=== PATIENT | male | born 1975 | race Caucasian/White ===

== ENCOUNTER 2017-12-02 15:56 | Emergency (ER) | payer OTHER ==
[~2017-12-02] VITALS: Ht 177.8 cm; Wt 68.2 kg
[2017-12-02 16:12] LABS: GLUCOSE,POINT OF CARE 94 MG/DL (70-110)
[2017-12-02] MEDS ORDERED: NALOXONE HCL 1 MG/ML 2 ML SYG IVP ONE ×2 (16:30)
[2017-12-02] MEDS ORDERED: SODIUM CHLORIDE 0.9% 1,000 ML IV ONE (16:30)
[2017-12-02 16:39] LABS: BASOPHILS % (AUTO) 0.4 % (0.0-2.0); EOSINOPHILS % (AUTO) 0.8 % (1.0-6.0); HEMATOCRIT 37.1 % (41-53); HEMOGLOBIN 12.7 g/dL (13.5-17.5); LYMPHOCYTES # (AUTO) 0.9 K/uL (1.0-4.8); LYMPHOCYTES % (AUTO) 8.3 % (22.0-44.0); MEAN CORPUSCULAR HEMOGLOBIN 32.1 pg (26.0-34.0); MEAN CORPUSCULAR HGB CONC 34.4 G/dL (31.0-37.0); MEAN CORPUSCULAR VOLUME 93 fL (80-100); MONOCYTES # (AUTO) 0.8 K/uL (0.1-1.0); NEUTROPHILS # (AUTO) 9.2 K/uL (1.8-7.7); NEUTROPHILS % (AUTO) 83.5 % (40.0-70.0); PLATELET COUNT (AUTO) 103 K/uL (150-450); RED BLOOD CELL COUNT(AUTO) 3.97 MIL/uL (4.50-5.90); RED CELL DISTRIBUTION WIDTH 13.3 % (11.5-14.5)
[2017-12-02 16:47] LABS: ANION GAP 9 mmol/L (8-16); CALCIUM, TOTAL 8.3 mg/dL (8.8-10.5); CARBON DIOXIDE 27 mmol/L (22-29); CHLORIDE 102 mmol/L (98-107); CREATININE 0.49 mg/dL (0.60-1.30); GLOMERULAR FILTR. RATE CALC > 60 mL/min (>60); GLUCOSE,RANDOM 102 mg/dL (70-110); SODIUM SERUM 138 mmol/L (136-145); UREA NITROGEN, BLOOD 13 mg/dL (7-18)
[2017-12-02 16:48] LABS: AMPHET/METH SCREEN,URINE NEGATIVE (NEGATIVE); BARBITURATE SCREEN, URINE NEGATIVE (NEGATIVE); BENZODIAZEPINES SCREEN,URINE POSITIVE (NEGATIVE); CANNABINOID SCREEN,URINE NEGATIVE (NEGATIVE); COCAINE SCREEN,URINE NEGATIVE (NEGATIVE); METHADONE SCREEN, URINE NEGATIVE (NEGATIVE); OPIATE SCREEN,URINE NEGATIVE (NEGATIVE); PHENCYCLIDINE SCREEN,URINE NEGATIVE (NEGATIVE)
[2017-12-02 16:54] LABS: APPEARANCE,URINE CLEAR (CLEAR); BILIRUBIN,URINE NEGATIVE (NEGATIVE); GLUCOSE, URINE (UA) NEGATIVE (NEGATIVE); KETONES,URINE NEGATIVE (NEGATIVE); LEUKOCYTE ESTERASE ,URINE NEGATIVE (NEGATIVE); NITRATE,URINE NEGATIVE (NEGATIVE); OCCULT BLOOD,URINE TRACE (NEGATIVE); PH,URINE 6.5 (5.0-8.0); PROTEIN,URINE NEGATIVE (NEGATIVE); UROBILINOGEN,URINE 0.2 mg/dL (<=1.0)
[2017-12-02 16:54] LABS: ALANINE AMINOTRANSFERASE 94 U/L (12-78); ALKALINE PHOSPHATASE 103 U/L (46-116); ASPARTATE AMINOTRANSFERASE 122 U/L (15-37); BILIRUBIN,TOTAL 0.3 mg/dL (0.1-1.0)
[2017-12-02 17:07] LABS: SALICYLATE < 2.8 mg/dL (2.8-20.0)
[2017-12-02 17:15] LABS: BACTERIA,URINE None Seen /HPF (None Seen); RBC,URINE 0-2 /HPF (0-2); SQUAMOUS EPITHELIAL CELL,UR None Seen /LPF (None Seen); WBC,URINE 0-2 /HPF (0-5)
[2017-12-02] MEDS ORDERED: FLUMAZENIL 0.1 MG/ML 5 ML VIAL IVP ONE (17:15)
[2017-12-02 17:24] LABS: ACETAMINOPHEN < 2 mcg/mL (10-30)
[2017-12-02] MEDS ORDERED: SUCCINYLCHOLINE CHLORIDE 20 MG/ML 10 ML VIAL ONE (17:31)
[2017-12-02] MEDS ORDERED: RAPID SEQUENCE KIT [RSI] 1 EACH KIT ONE (17:31)
[2017-12-02] MEDS ORDERED: DEXTROSE 50%-WATER 25 GM/50 ML SYRINGE IVP ONE ×2 (17:33)
[2017-12-02 18:52] LABS: ABG CARBOXYHEMOGLOBIN 1.3 % (0.0-1.5); ABG METHEMOGLOBIN 0.3 % (0.0-1.5); ABG OXYGEN CONTENT 17.4 mL/dL (15.0-23.0); ABG OXYGEN SATURATION 98.9 % (95.0-98.0); ABG OXYHEMOGLOBIN 97.3 % (94.0-100.0); ABG PCO2 40 mmHg (35-45); ABG PH 7.382 (7.35-7.450); ABG TOTAL HEMOGLOBIN 12.5 G/dL (12.0-18.0); PO2, ARTERIAL BG 165.8 mmHg (66.0-74.0); SOURCE, BLOOD GAS ARTERIAL; TEMPERATURE, FAHRENHEIT, BG 98.6 FAHREN (96.0-98.6)
[2017-12-02 18:53] LABS: SITE, BLOOD GAS LFT RADIAL
[2017-12-02 18:54] LABS: O2 DEVICE,BLOOD GAS CANNULA (ROOM AIR)
[2017-12-02] MEDS ORDERED: MAGNESIUM SULFATE 2 GM, MVI, ADULT NO.1 WITH VIT K 10 ML, THIAMINE HCL 100 MG, FOLIC AC... IV ONE ×5 (21:00)
[2017-12-03 06:10] VITALS: BP 120/74
== END 2017-12-03 06:36 | disposition home or self-care (01) ==
LOC: EMS 15:57 → EDBD 15:57 → EMS 12-03 06:36
DX: R40.4 Transient alteration of awareness (principal); F10.129 Alcohol abuse with intoxication, unspecified; F19.10 Other psychoactive substance abuse, uncomplicated
CPT/HCPCS: 36415; 70450; 80053; 80307; 81001; 82805; 82962; 84484; 85025; 93005; 96365; 96375; 99285; G0480 ×2; G0481; J0330; J3411; J3475; J3490 ×3; J7030; Z7610

== ENCOUNTER 2018-05-08 22:54 | Inpatient (IN) | payer MEDICAID, OTHER ==
[~2018-05-08] VITALS: Ht 172.7 cm; Wt 72.1 kg
[2018-05-08] MEDS ORDERED: SODIUM CHLORIDE 0.9% 1,000 ML IV ONE (23:30)
[2018-05-08 23:55] LABS: BASOPHILS % (AUTO) 1.7 % (0.0-2.0); EOSINOPHILS % (AUTO) 1.2 % (1.0-6.0); HEMATOCRIT 37.9 % (41-53); HEMOGLOBIN 13.1 g/dL (13.5-17.5); LYMPHOCYTES # (AUTO) 1.5 K/uL (1.0-4.8); LYMPHOCYTES % (AUTO) 23.9 % (22.0-44.0); MEAN CORPUSCULAR HEMOGLOBIN 32.7 pg (26.0-34.0); MEAN CORPUSCULAR HGB CONC 34.6 G/dL (31.0-37.0); MEAN CORPUSCULAR VOLUME 94 fL (80-100); MONOCYTES # (AUTO) 0.3 K/uL (0.1-1.0); NEUTROPHILS # (AUTO) 4.5 K/uL (1.8-7.7); NEUTROPHILS % (AUTO) 69.2 % (40.0-70.0); PLATELET COUNT (AUTO) 230 K/uL (150-450); RED BLOOD CELL COUNT(AUTO) 4.02 MIL/uL (4.50-5.90); RED CELL DISTRIBUTION WIDTH 14.7 % (11.5-14.5)
[2018-05-09 00:50] LABS: ANION GAP 6 mmol/L (8-16); CALCIUM, TOTAL 8.6 mg/dL (8.8-10.5); CARBON DIOXIDE 30 mmol/L (22-29); CHLORIDE 107 mmol/L (98-107); CREATININE 0.49 mg/dL (0.60-1.30); GLOMERULAR FILTR. RATE CALC > 60 mL/min (>60); GLUCOSE,RANDOM 82 mg/dL (70-110); POTASSIUM 3.8 mmol/L (3.5-5.1); SODIUM SERUM 143 mmol/L (136-145); UREA NITROGEN, BLOOD 6 mg/dL (7-18)
[2018-05-09 00:56] LABS: ALANINE AMINOTRANSFERASE 56 U/L (12-78); ALBUMIN 3.5 g/dL (3.4-5.0); ALKALINE PHOSPHATASE 59 U/L (46-116); ASPARTATE AMINOTRANSFERASE 50 U/L (15-37); BILIRUBIN,TOTAL 0.2 mg/dL (0.1-1.0)
[2018-05-09 03:40] LABS: AMPHET/METH SCREEN,URINE NEGATIVE (NEGATIVE); BARBITURATE SCREEN, URINE NEGATIVE (NEGATIVE); BENZODIAZEPINES SCREEN,URINE POSITIVE (NEGATIVE); CANNABINOID SCREEN,URINE NEGATIVE (NEGATIVE); COCAINE SCREEN,URINE NEGATIVE (NEGATIVE); METHADONE SCREEN, URINE NEGATIVE (NEGATIVE); OPIATE SCREEN,URINE NEGATIVE (NEGATIVE)
[2018-05-09 03:43] LABS: PHENCYCLIDINE SCREEN,URINE NEGATIVE (NEGATIVE)
[2018-05-09] MEDS ORDERED: LORazepam 2 MG/ML VIAL IVP ONE (05:00)
[2018-05-09] MEDS ORDERED: LOPERAMIDE HCL 2 MG CAPSULE PO PRN ×3 (05:45→18:00)
[2018-05-09] MEDS ORDERED: MAG HYDROX/AL HYDROX/SIMETH ES 30 ML SUSPENSION UDCUP PO PRN ×2 (05:45→18:00)
[2018-05-09] MEDS ORDERED: GuaiFENesin/D-METHORPHAN [SUGAR-FREE] 200-20MG/10 ML SYRUP UDCUP PO PRN (05:45)
[2018-05-09] MEDS ORDERED: CYANOCOBALAMIN 1,000 MCG/ML VIAL IM ONE (05:45)
[2018-05-09] MEDS ORDERED: MAGNESIUM HYDROXIDE SUSPENSION 30 ML UDCUP PO PRN ×2 (05:45→18:00)
[2018-05-09] MEDS ORDERED: PROMETHAZINE HCL 25 MG TABLET PO PRN (05:45)
[2018-05-09] MEDS: LORazepam 2 MG TABLET PO PRN ×3 (09:15→17:37)
[2018-05-09] MEDS: FOLIC ACID 1 MG TABLET PO SCH (09:15)
[2018-05-09] MEDS: MULTIVITAMINS WITH MINERALS, THERAPEUTIC TABLET PO SCH (09:15)
[2018-05-09] MEDS: THIAMINE HCL 100 MG TABLET PO SCH ×2 (09:16→17:13)
[2018-05-09] MEDS: HydrOXYzine PAMOATE 50 MG CAPSULE PO PRN (09:39)
[2018-05-09] MEDS: HALOPERIDOL 5 MG TABLET PO PRN ×2 (09:39→17:37)
[2018-05-09] MEDS: ACETAMINOPHEN 325 MG TABLET PO PRN ×2 (12:40→17:37)
[2018-05-09 16:35] VITALS: BP 146/98
[2018-05-09 17:14] VITALS: BP 146/98
[2018-05-09 17:40] VITALS: BP 134/90
[2018-05-09] MEDS ORDERED: ONDANSETRON HCL 4 MG TABLET PO PRN (18:00)
[2018-05-09] MEDS ORDERED: CloNIDine HCL 0.1 MG TABLET PO PRN (18:00)
[2018-05-09] MEDS ORDERED: DOCUSATE SODIUM 100 MG CAPSULE PO PRN (18:00)
[2018-05-09] MEDS ORDERED: ALBUTEROL SULFATE HFA 90 MCG/PUFF 8 GM INHALER IH PRN (18:00)
[2018-05-09] MEDS ORDERED: PETROLATUM,WHITE 71 GM JELLY TP PRN (18:00)
[2018-05-09] MEDS ORDERED: ACETAMINOPHEN 325 MG TABLET PO PRN (18:00)
[2018-05-09 18:30] VITALS: BP 122/88
[2018-05-09 19:30] VITALS: BP 109/67
[2018-05-09 23:37] VITALS: BP 124/92
[2018-05-10] VITALS (7 sets, daily range): BP systolic 105–131; BP diastolic 64–84
[2018-05-10] MEDS: HALOPERIDOL 5 MG TABLET PO PRN ×3 (06:34→14:52)
[2018-05-10 08:21] LABS: HEMOGLOBIN A1C 4.8 % (4.5-6.2)
[2018-05-10] MEDS: NICOTINE 14 MG/24 HOUR PATCH TD SCH (09:00)
[2018-05-10 09:13] LABS: CHOL/HDL RATIO 2.7 (4.2-7.3); THYROID STIMULATING HORMONE 1.92 uIU/mL (0.36-3.74)
[2018-05-10] MEDS: THIAMINE HCL 100 MG TABLET PO SCH ×2 (10:17→16:09)
[2018-05-10] MEDS: FOLIC ACID 1 MG TABLET PO SCH (10:17)
[2018-05-10] MEDS: MULTIVITAMINS WITH MINERALS, THERAPEUTIC TABLET PO SCH (10:17)
[2018-05-10] MEDS: LORazepam 2 MG TABLET PO SCH ×4 (10:17→20:27)
[2018-05-10] MEDS: LORazepam 2 MG TABLET PO PRN ×2 (14:51→17:45)
[2018-05-10] MEDS: GABAPENTIN 300 MG CAPSULE PO SCH (17:07)
[2018-05-10] MEDS: ZOLPIDEM TARTRATE 10 MG TABLET PO PRN (20:27)
[2018-05-10] MEDS ORDERED: MIRTAZAPINE 15 MG TABLET PO SCH (21:00)
[2018-05-11 06:09] VITALS: BP 120/62
[2018-05-11] MEDS: LORazepam 2 MG TABLET PO PRN (07:00)
[2018-05-11 08:00] VITALS: BP 107/63
[2018-05-11 08:16] VITALS: BP 107/63
[2018-05-11] MEDS: LORazepam 2 MG TABLET PO SCH ×4 (08:58→20:39)
[2018-05-11] MEDS: IBUPROFEN 400 MG TABLET PO PRN (08:58)
[2018-05-11] MEDS: THIAMINE HCL 100 MG TABLET PO SCH ×2 (08:58→16:23)
[2018-05-11] MEDS: MULTIVITAMINS WITH MINERALS, THERAPEUTIC TABLET PO SCH (08:58)
[2018-05-11] MEDS: FOLIC ACID 1 MG TABLET PO SCH (08:58)
[2018-05-11] MEDS: GABAPENTIN 300 MG CAPSULE PO SCH ×2 (08:58→16:22)
[2018-05-11] MEDS: NICOTINE 14 MG/24 HOUR PATCH TD SCH (08:59)
[2018-05-11 16:00] VITALS: BP 121/65
[2018-05-11] MEDS: HALOPERIDOL 5 MG TABLET PO PRN (16:23)
[2018-05-11] MEDS: ZOLPIDEM TARTRATE 10 MG TABLET PO PRN (20:39)
[2018-05-11] MEDS ORDERED: MIRTAZAPINE 30 MG TABLET PO SCH (21:00)
[2018-05-12 01:05] VITALS: BP 120/68
[2018-05-12 01:08] VITALS: BP 120/68
[2018-05-12 04:45] VITALS: BP 110/74
[2018-05-12] MEDS: LORazepam 2 MG TABLET PO PRN (04:46)
[2018-05-12 08:06] VITALS: BP_SYST 104; BP_DIAS 65; BP_DIAS 71
[2018-05-12] MEDS: NICOTINE 14 MG/24 HOUR PATCH TD SCH (09:00)
[2018-05-12] MEDS: MULTIVITAMINS WITH MINERALS, THERAPEUTIC TABLET PO SCH (09:07)
[2018-05-12] MEDS: FOLIC ACID 1 MG TABLET PO SCH (09:07)
[2018-05-12] MEDS: LORazepam 1 MG TABLET PO SCH ×4 (09:07→20:09)
[2018-05-12] MEDS: GABAPENTIN 300 MG CAPSULE PO SCH ×3 (09:07→16:05)
[2018-05-12] MEDS: THIAMINE HCL 100 MG TABLET PO SCH ×2 (09:10→16:04)
[2018-05-12] MEDS: LORazepam 1 MG TABLET PO PRN (10:22)
[2018-05-12 16:00] VITALS: BP 127/72
[2018-05-12] MEDS: HALOPERIDOL 5 MG TABLET PO PRN (16:04)
[2018-05-12] MEDS: MIRTAZAPINE 30 MG TABLET PO SCH (20:08)
[2018-05-12] MEDS: ZOLPIDEM TARTRATE 10 MG TABLET PO PRN (20:09)
[2018-05-13 00:46] VITALS: BP 124/83
[2018-05-13 00:53] VITALS: BP 124/83
[2018-05-13] MEDS: HALOPERIDOL 5 MG TABLET PO PRN ×3 (06:52→20:18)
[2018-05-13] MEDS: LORazepam 1 MG TABLET PO PRN ×4 (06:53→20:18)
[2018-05-13 08:00] VITALS: BP 110/65
[2018-05-13] MEDS: MULTIVITAMINS WITH MINERALS, THERAPEUTIC TABLET PO SCH (08:24)
[2018-05-13] MEDS: THIAMINE HCL 100 MG TABLET PO SCH ×2 (08:25→16:23)
[2018-05-13] MEDS: FOLIC ACID 1 MG TABLET PO SCH (08:25)
[2018-05-13] MEDS ORDERED: GABAPENTIN 400 MG CAPSULE PO SCH (09:00)
[2018-05-13] MEDS ORDERED: GABAPENTIN 300 MG CAPSULE PO SCH ×2 (09:00)
[2018-05-13] MEDS: NICOTINE 14 MG/24 HOUR PATCH TD SCH (09:00)
[2018-05-13 13:01] VITALS: BP 110/65
[2018-05-13] MEDS: GABAPENTIN 300 MG CAPSULE PO SCH ×2 (13:10→16:23)
[2018-05-13 16:00] VITALS: BP 124/66
[2018-05-13] MEDS: HydrOXYzine PAMOATE 50 MG CAPSULE PO PRN (16:23)
[2018-05-13] MEDS: MIRTAZAPINE 30 MG TABLET PO SCH (20:18)
[2018-05-13] MEDS: ZOLPIDEM TARTRATE 10 MG TABLET PO PRN (20:18)
[2018-05-14] VITALS: BP 105/64
[2018-05-14 05:37] VITALS: BP_SYST 102; BP_SYST 112; BP_DIAS 66
[2018-05-14] MEDS: LORazepam 1 MG TABLET PO PRN (05:44)
[2018-05-14] MEDS: HALOPERIDOL 5 MG TABLET PO PRN ×3 (05:44→16:26)
[2018-05-14 08:27] VITALS: BP 102/60
[2018-05-14] MEDS: FOLIC ACID 1 MG TABLET PO SCH (08:42)
[2018-05-14] MEDS: GABAPENTIN 300 MG CAPSULE PO SCH ×3 (08:42→16:26)
[2018-05-14] MEDS: THIAMINE HCL 100 MG TABLET PO SCH ×2 (08:42→16:26)
[2018-05-14] MEDS: NICOTINE 14 MG/24 HOUR PATCH TD SCH (08:42)
[2018-05-14] MEDS: MULTIVITAMINS WITH MINERALS, THERAPEUTIC TABLET PO SCH (08:42)
[2018-05-14 09:34] VITALS: BP 102/58
[2018-05-14] MEDS: LORazepam 0.5 MG TABLET PO PRN ×3 (12:41→20:57)
[2018-05-14 16:25] VITALS: BP 115/65
[2018-05-14] MEDS: ZOLPIDEM TARTRATE 10 MG TABLET PO PRN (20:57)
[2018-05-14] MEDS: MIRTAZAPINE 30 MG TABLET PO SCH (20:57)
[2018-05-15 00:05] VITALS: BP 108/67
[2018-05-15] MEDS: LORazepam 0.5 MG TABLET PO PRN ×5 (03:55→21:11)
[2018-05-15 08:08] VITALS: BP 99/64
[2018-05-15] MEDS: THIAMINE HCL 100 MG TABLET PO SCH ×2 (08:59→16:08)
[2018-05-15] MEDS: HALOPERIDOL 5 MG TABLET PO PRN ×2 (08:59→16:08)
[2018-05-15] MEDS: FOLIC ACID 1 MG TABLET PO SCH (08:59)
[2018-05-15] MEDS: GABAPENTIN 300 MG CAPSULE PO SCH ×3 (08:59→16:08)
[2018-05-15] MEDS: MULTIVITAMINS WITH MINERALS, THERAPEUTIC TABLET PO SCH (08:59)
[2018-05-15] MEDS: NICOTINE 14 MG/24 HOUR PATCH TD SCH (14:08)
[2018-05-15 16:32] VITALS: BP 110/83
[2018-05-15] MEDS: MIRTAZAPINE 30 MG TABLET PO SCH (21:10)
[2018-05-15] MEDS: ZOLPIDEM TARTRATE 10 MG TABLET PO PRN (21:10)
[2018-05-16 06:00] VITALS: BP 115/69
[2018-05-16 06:31] VITALS: BP 102/69
[2018-05-16] MEDS: LORazepam 0.5 MG TABLET PO PRN ×4 (06:31→19:25)
[2018-05-16 08:36] VITALS: BP 106/60
[2018-05-16] MEDS: NICOTINE 14 MG/24 HOUR PATCH TD SCH (08:59)
[2018-05-16] MEDS: THIAMINE HCL 100 MG TABLET PO SCH ×2 (08:59→16:55)
[2018-05-16] MEDS: FOLIC ACID 1 MG TABLET PO SCH (08:59)
[2018-05-16] MEDS: MULTIVITAMINS WITH MINERALS, THERAPEUTIC TABLET PO SCH (08:59)
[2018-05-16] MEDS: GABAPENTIN 300 MG CAPSULE PO SCH ×3 (09:00→16:55)
[2018-05-16 16:00] VITALS: BP 110/75
[2018-05-16] MEDS: HALOPERIDOL 5 MG TABLET PO PRN (16:55)
[2018-05-16] MEDS: MIRTAZAPINE 30 MG TABLET PO SCH (20:15)
[2018-05-16] MEDS: TraZODone HCL 100 MG TABLET PO SCH (20:15)
[2018-05-16] MEDS: ZOLPIDEM TARTRATE 10 MG TABLET PO PRN (20:15)
[2018-05-17] MEDS: LORazepam 0.5 MG TABLET PO PRN ×4 (06:24→18:40)
[2018-05-17 06:28] VITALS: BP 118/72
[2018-05-17] MEDS: FOLIC ACID 1 MG TABLET PO SCH (08:17)
[2018-05-17] MEDS: GABAPENTIN 300 MG CAPSULE PO SCH ×3 (08:17→16:33)
[2018-05-17] MEDS: THIAMINE HCL 100 MG TABLET PO SCH ×2 (08:17→16:33)
[2018-05-17] MEDS: MULTIVITAMINS WITH MINERALS, THERAPEUTIC TABLET PO SCH (08:17)
[2018-05-17] MEDS: NICOTINE 14 MG/24 HOUR PATCH TD SCH (08:17)
[2018-05-17 08:30] VITALS: BP 101/69
[2018-05-17 14:45] VITALS: BP 108/62
[2018-05-17] MEDS: IBUPROFEN 400 MG TABLET PO PRN (14:51)
[2018-05-17 16:21] VITALS: BP 105/65
[2018-05-17] MEDS: HALOPERIDOL 5 MG TABLET PO PRN (16:33)
[2018-05-17] MEDS: TraZODone HCL 100 MG TABLET PO SCH (21:19)
[2018-05-17] MEDS: ZOLPIDEM TARTRATE 10 MG TABLET PO PRN (21:19)
[2018-05-17] MEDS: MIRTAZAPINE 30 MG TABLET PO SCH (21:19)
[2018-05-18 00:29] VITALS: BP 110/68
[2018-05-18] MEDS: LORazepam 0.5 MG TABLET PO PRN ×4 (06:07→18:11)
[2018-05-18 08:11] VITALS: BP 98/61
[2018-05-18] MEDS: FOLIC ACID 1 MG TABLET PO SCH (08:57)
[2018-05-18] MEDS: MULTIVITAMINS WITH MINERALS, THERAPEUTIC TABLET PO SCH (08:57)
[2018-05-18] MEDS: NICOTINE 14 MG/24 HOUR PATCH TD SCH (08:58)
[2018-05-18] MEDS: GABAPENTIN 300 MG CAPSULE PO SCH ×3 (08:58→17:00)
[2018-05-18] MEDS: THIAMINE HCL 100 MG TABLET PO SCH (08:58)
[2018-05-18 16:00] VITALS: BP 115/77
[2018-05-18] MEDS: HALOPERIDOL 5 MG TABLET PO PRN (17:00)
[2018-05-18] MEDS: MIRTAZAPINE 30 MG TABLET PO SCH (20:50)
[2018-05-18] MEDS: ZOLPIDEM TARTRATE 10 MG TABLET PO PRN (20:50)
[2018-05-18] MEDS: TraZODone HCL 100 MG TABLET PO SCH (20:50)
[2018-05-19 06:06] VITALS: BP 118/73
[2018-05-19] MEDS: LORazepam 0.5 MG TABLET PO PRN ×4 (06:18→19:19)
[2018-05-19 08:24] VITALS: BP 118/73
[2018-05-19] MEDS: NICOTINE 14 MG/24 HOUR PATCH TD SCH (09:00)
[2018-05-19] MEDS: MULTIVITAMINS WITH MINERALS, THERAPEUTIC TABLET PO SCH (09:01)
[2018-05-19] MEDS: GABAPENTIN 300 MG CAPSULE PO SCH ×3 (09:02→16:39)
[2018-05-19] MEDS: HALOPERIDOL 5 MG TABLET PO PRN (16:39)
[2018-05-19 19:00] VITALS: BP 117/75
[2018-05-19] MEDS ORDERED: ZOLPIDEM TARTRATE 10 MG TABLET PO PRN (20:00)
[2018-05-19] MEDS: MIRTAZAPINE 30 MG TABLET PO SCH (20:53)
[2018-05-19] MEDS: TraZODone HCL 100 MG TABLET PO SCH (20:53)
[2018-05-20 05:50] VITALS: BP 118/72
[2018-05-20] MEDS: LORazepam 0.5 MG TABLET PO PRN ×2 (05:51→10:05)
[2018-05-20 08:13] VITALS: BP 116/71
[2018-05-20] MEDS: GABAPENTIN 300 MG CAPSULE PO SCH ×2 (08:15→12:38)
[2018-05-20] MEDS: MULTIVITAMINS WITH MINERALS, THERAPEUTIC TABLET PO SCH (08:15)
[2018-05-20] MEDS: NICOTINE 14 MG/24 HOUR PATCH TD SCH (08:16)
[2018-05-20] MEDS ORDERED: MIRT15 PO (09:32)
[2018-05-20] MEDS ORDERED: TRAZ-220 PO (09:32)
[2018-05-20] MEDS ORDERED: GABA-531 PO (09:32)
== END 2018-05-20 13:30 | disposition home or self-care (01) | DRG 751 ==
LOC: EMS 22:56 → B3A 05-09 15:03
PROVIDERS: ADMIT Psychiatry & Neurology Psychiatry; ATTEND Psychiatry & Neurology Psychiatry
DX: F33.2 Major depressive disorder, recurrent severe without psychotic features (principal); R45.851 Suicidal ideations; Z91.19 Patient's noncompliance with other medical treatment and regimen; E78.5 Hyperlipidemia, unspecified; F41.9 Anxiety disorder, unspecified; F19.10 Other psychoactive substance abuse, uncomplicated; D64.9 Anemia, unspecified; G47.00 Insomnia, unspecified; Y90.8 Blood alcohol level of 240 mg/100 ml or more; F10.229 Alcohol dependence with intoxication, unspecified; Z71.41 Alcohol abuse counseling and surveillance of alcoholic; Z71.51 Drug abuse counseling and surveillance of drug abuser; Z59.0 Homelessness; Z91.5 Personal history of self-harm; Z79.899 Other long term (current) drug therapy
CPT/HCPCS: 51702; 70450; 83036; 84443; 96361; 96372; 96374; 99285; G0480; J2060; J3420